=== PATIENT | male | born 1990 | race Caucasian/White ===

== ENCOUNTER 2017-02-23 20:39 | Emergency (ER) | payer MEDICAID ==
[~2017-02-23] VITALS: Ht 172.7 cm; Wt 112.0 kg
[~2017-02-23 20:39] MED LIST: ACYC800T57 PO; POLY15DR42 BOTH EYES; PRED50TA PO
[2017-02-23 20:42] VITALS: Ht 172.7 cm; Wt 112.0 kg
[2017-02-23] MEDS ORDERED: KETOROLAC 15 MG INJ IM STA (21:42)
--- NOTE | 2017-02-23 21:42 | ERD ---
ER Documentation Chief Complaint Chief Complaint low back pain x 2 days, denies injury HPI This 26-year-old male patient presents to emergency department for assessment of chronic lumbar back pain x 3 weeks worsening with conservative tx of IBU. pt reports pain is worse on left and is radiating into glut , pain described as " something is pushing against back . 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 Medications Home Meds Active Scripts Artificial Tears* (Artificial Tears* Ophth) 15 ml Opht, 2 DROP BOTH EYES Q3H Y for DRY EYES, #1 EA Prov:ROSELIA RICHMOND MISSILE TRACKING TECHNICIAN 11/08/15 Prednisone* (Prednisone*) 50 Mg Tablet, 50 MG PO DAILY, #5 TAB Prov:ROSELIA RICHMOND MISSILE TRACKING TECHNICIAN 11/08/15 Acyclovir* (Zovirax*) 800 Mg Tablet, 800 MG PO 5 TIMES DAILY for 7 Days, TAB Prov:ROSELIA RICHMOND MISSILE TRACKING TECHNICIAN 11/08/15 Reported Medications [none] Unknown Strength No Conflict Check 11/07/15 Allergies Allergies: Coded Allergies: No Known Allergy (Unverified , 01/13/14) PMhx/Soc History of Surgery: No Anesthesia Reaction: No Hx Neurological Disorder: No Hx Respiratory Disorders: No Hx Cardiac Disorders: No Hx Psychiatric Problems: No Hx Miscellaneous Medical Probl: No Hx Alcohol Use: Yes (socially ) Hx Substance Use: No Hx Tobacco Use: No Physical Exam Vitals Vital Signs Date Time Temp Pulse Resp B/P Pulse Ox O2 Delivery O2 Flow Rate FiO2 02/23/17 20:42 98.7 91 20 142/73 98 Vitals stable, triage notes reviewed Physical Exam Const: Nourished well-hydrated well-appearing 26-year-old male patient no acute distress Head: Eyes: ENT: . Neck: Resp: Cardio: Abd: Soft, non tender, non distended. Normal bowel sounds Skin: Back Exam: Skin: No bruising or rash Compartments: Soft Motor: Normal flexion and extension of bilateral hip/knee/ ankle/foot-straight leg rises positive at 55, pain bilaterally with adduction and abduction Sensation: Intact to light touch throughout Bones: No midline TTP Ext: No cyanosis, or edema Neur: Awake and alert Psych: Normal Mood and Affect Results 24 hrs Current Medications Medications (Trade) Dose Ordered Sig/Yara Route PRN Reason Start Time Stop Time Status Last Admin Dose Admin Ketorolac Tromethamine (Toradol) 15 mg ONCE STAT IM 02/23/17 21:42 02/23/17 21:43 DC 02/23/17 22:07 Diazepam (Valium) 5 mg ONCE ONCE PO 02/23/17 22:00 02/23/17 22:01 DC 02/23/17 22:07 Procedures/MDM This 26-year-old male patient presents to emergency department for low back pain worsening over the last 3 weeks treating with ibuprofen, 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 Patient reports that he now is experiencing pain greater on left side radiating to left buttocks. Emergency room course includes history and physical exam, straight leg rises positive with abduction and abduction, I do not feel it is necessary to have a lumbar spine x-ray, patient will be treated with Toradol and Valium in emergency department reassessed after 30 minutes with improvement of symptoms discharged home with Naprosyn 500 mg 1 tab p.o. twice daily 10 days , Pepcid 20 mg 1 tab p.o. twice daily 10 days, and Valium 5 mg 1 tab p.o. 3 times daily as needed myalgia. Follow-up with primary care physician within the next 7-10 days for possible referral to physical therapy, consider incident report at work. Patient is stable with no new complaints during ER course, clinically there is no current evidence to suggest cauda equina syndrome, spinal abscess, sepsis, acute abdomen, or any other emergent condition appearing to require further evaluation or hospitalization. I feel the patient is stable for discharge at this time. I have discussed results, examination findings, the treatment plan with the patient and family present prior to discharge. Indications for emergent reevaluation, side effects of medication were also discussed. All questions were answered. Patient verbalizes understanding and agrees with plan of care. Departure Diagnosis: Primary Impression: Back pain Back pain location: low back pain Chronicity: acute Back pain laterality: bilateral Sciatica presence: with sciatica Sciatica laterality: sciatica of left side Qualified Code: M54.42 - Acute bilateral low back pain with left- sided sciatica Condition: Good Patient Instructions: Back Pain W/ Sciatica Additional Instructions: Thank you for for coming to [facility] for your care today. Please ask your nurse or provider if you have questions about your care today and do not leave until all your questions have been answered. Please use any medications given as directed and follow-up with your doctor (or the doctor you were referred to) in the next 2-3 days. If you do not have a primary care doctor you may follow up at the [facility] (listed below). You may also use motrin and tylenol as needed for fever and/or pain unless instructed otherwise by your provider or nurse. Indications for more urgent follow-up have been discussed, but you may return to the Emergency Department at ANY time for any worrisome or worsening symptoms. If you have abdominal pain, please know that no test or exam you received is perfect and you should follow up within 8 hours for continued pain. If you had any imaging studies today, such as an X-Ray or CT Scan, these studies will be reviewed later by a radiologist. You will be called if there are important findings that were not identified today, so make sure the contact information you provided at registration is correct. If you received any narcotic pain control medicine today, such as Vicodin, Morphine or Dilaudid, your coordination and judgment may be affected for a number of hours. Please do not drive or operate heavy machinery, and you may want someone to assist you at home. If you were given a prescription for narcotic medication, be aware that it is very addictive- use sparingly and only if necessary. CRISTA BEY Feb 23, 2017 21:41
[2017-02-23] MEDS ORDERED: DIAZEPAM 5 MG TAB PO ONE (22:00)
[2017-02-23] MEDS ORDERED: NAPR-260 PO (23:17)
[2017-02-23] MEDS ORDERED: DIAZ-90 PO (23:17)
[2017-02-23] MEDS ORDERED: FAMO-96 PO (23:17)
== END 2017-02-23 23:25 | disposition home or self-care (01) ==
LOC: FTE 20:39
DX: M54.42 Lumbago with sciatica, left side (principal)
CPT/HCPCS: 96372; J1885; Z7502; Z7610

== ENCOUNTER 2018-11-26 23:06 | Emergency (ER) | payer SELFPAY ==
[~2018-11-26] VITALS: Ht 170.2 cm; Wt 108.7 kg
[~2018-11-26 23:06] MED LIST changes: +ACYC800T5 PO; -ACYC800T57 PO; +BEN25 PO; +DIAZ5TAB PO; +FAMO-96 PO; +IBUP800T48 PO; +NAPR-985 PO; +PRED20TA PO
[2018-11-26 23:15] VITALS: BP 150/84; PULSE 67; RESP 18; Ht 170.2 cm; Wt 108.7 kg
--- NOTE | 2018-11-27 00:25 | ERD ---
ER Documentation Chief Complaint Chief Complaint neck rash since yesterday. c/o itch HPI This is a 28-year-old male presents emergency department with complaints of rash to the neck that started yesterday. Complains of itchiness and pain to rash area. Denies headache, head injury, loss of consciousness, dizziness, neck pain, neck stiffness, throat pain, difficulty swallowing, difficulty breathing lying flat, shoulder pain, chest pain, back pain, abdominal pain, nausea, vomiting, constipation, diarrhea, urinary symptoms, loss of bowel and bladder control, trauma, injury, falls, difficulty walking due to pain, numbness or tingling sensation, calf pain, recent travel, recent major surgery in the last 3 weeks, calf pain, recent long travel, recent exposure to any illness, recent antibiotic use in the last 3 months, fever, chills, seizures. Past medical history: Denies. Surgical history: Denies. Social: Denies smoking, use of alcoholic beverages, use of illegal drugs. ROS All systems reviewed and are negative except as per history of present illness. Medications Home Meds Active Scripts Prednisone* (Prednisone*) 20 Mg Tab, 60 MG PO DAILY for 5 Days, TAB Prov:COURTNEY CORONA 11/27/18 Diphenhydramine Hcl* (Benadryl*) 25 Mg Cap, 25 MG PO Q6 PRN for ITCHING/RASH, #30 TAB Prov:COURTNEY CORONA 11/27/18 Ibuprofen* (Motrin*) 800 Mg Tab, 800 MG PO Q8 PRN for PAIN AND OR ELEVATED TEMP, #30 TAB Prov:COURTNEY CORONA 11/27/18 Acyclovir* (Zovirax*) 800 Mg Tablet, 800 MG PO 5 TIMES DAILY for 7 Days, TAB Prov:PASILACOURTNEY WAKEFIELD 11/27/18 Diazepam* (Valium*) 5 Mg Tablet, 5 MG PO Q8, #10 TAB Prov:MAIDA,CRISTA 02/23/17 Famotidine* (Pepcid*) 20 Mg Tablet, 20 MG PO BID for 10 Days, TAB Prov:MAIDA,CRISTA 02/23/17 Naproxen* (Naprosyn*) 500 Mg Tablet, 500 MG PO BID PRN for PAIN AND/OR INFLAMMATION, #20 TAB Prov:MAIDA,CRISTA 02/23/17 Artificial Tears* (Artificial Tears* Ophth) 15 ml Opht, 2 DROP BOTH EYES Q3H PRN for DRY EYES, #1 EA Prov:ROSELIA RICHMOND TONY Tariq INFORMATION CONSULTANT 11/08/15 Prednisone* (Prednisone*) 50 Mg Tablet, 50 MG PO DAILY, #5 TAB Prov:ROSELIA RICHMOND Marciano INFORMATION CONSULTANT 11/08/15 Acyclovir* (Zovirax*) 800 Mg Tablet, 800 MG PO 5 TIMES DAILY for 7 Days, TAB Prov:ROSELIA RICHMOND Marciano INFORMATION CONSULTANT 11/08/15 Reported Medications [none] Unknown Strength No Conflict Check 11/07/15 Allergies Allergies: Coded Allergies: No Known Allergy (Unverified , 11/26/18) PMhx/Soc History of Surgery: No Anesthesia Reaction: No Hx Neurological Disorder: No Hx Respiratory Disorders: No Hx Cardiac Disorders: No Hx Psychiatric Problems: No Hx Miscellaneous Medical Probl: No Hx Alcohol Use: No Hx Substance Use: No Hx Tobacco Use: No Physical Exam Vitals Physical Exam Const: No acute distress Head: Atraumatic Eyes: Normal Conjunctiva. No conjunctival injection. ENT: Normal External Ears, Nose and Mouth. Bilateral ear: TM is not erythematous. No bleeding. No discharge. No hearing loss. No mastoid tenderness. Nose: No nasal flaring. No signs of obstruction. Throat/Lips: No lip swelling. No tongue swelling. Able to control tongue movement. No drooling. Uvula is in midline and non-displaced. Tonsils are + 1 with no redness and no exudates. Tolerating secretions. Patent airway. Speaks full and clear sentences. No tripoding. Neck: Full range of motion. No meningismus. Nuchal rigidity. No signs of meningeal irritation. Resp: Clear to auscultation bilaterally. No retraction noted. No accessory muscle use in breathing. Cardio: Regular rate and rhythm, no murmurs. Abd: Soft, non tender, non distended. Normal bowel sounds. No abdominal tenderness. Skin: No petechiae. Noted vesicular lesions to neck. No hives. Back: No midline or flank tenderness Ext: No cyanosis, or edema Neur: Awake and alert. No neurological deficit.. Psych: Normal Mood and Affect Results 24 hrs Current Medications Medications Dose Sig/Ayra Start Time Status Last (Trade) Ordered Route PRN Stop Time Admin Dose Reason Admin Acyclovir 800 mg ONCE ONCE 11/27/18 DC 11/27/18 (Zovirax) PO 00:30 11/27/18 01:11 00:31 Ibuprofen 800 mg ONCE ONCE 11/27/18 DC 11/27/18 (Motrin) PO 00:30 11/27/18 01:06 00:31 25 mg ONCE ONCE 11/27/18 DC 11/27/18 Diphenhydrami PO 00:30 11/27/18 01:06 ne HCl 00:31 (Benadryl) Procedures/MDM Diagnostic tests: Genital exam. Treatment: Motrin. Acyclovir. Re-evaluation: No signs of airway obstruction. Speaks full and clear sentences. No signs of angioedema. Stated that she feels much better at this time. Stated that she is comfortable to go home. Differential diagnosis I have low suspicion for angioedema, airway obstruction, Dolan-Doug syndrome, scabies, sepsis, deep space infection. Final diagnosis: Shingles. Prescription: Acyclovir. Motrin. Prednisone. Benadryl. Follow-up with PCP in the next 24-48 hours. PCP to refer patient to profile saw operator in the next 24 to 48 hours. Come back here in the emergency depar tment for any new symptoms or any worsening symptoms. All questions and concerns were answered. Patient and family members verbalized understanding and agreed with plan of care. Hemodynamically stable on discharge. Departure Diagnosis: Primary Impression: Rash Additional Impression: Shingles Condition: Stable Additional Instructions: Follow-up with PCP in the next 24-48 hours. PCP to refer patient to profile saw operator in the next 24 to 48 hours. Come back here in the emergency department for any new symptoms or any worsening symptoms. COURTNEY CORONA Nov 27, 2018 00:25
[2018-11-27] MEDS ORDERED: ACYCLOVIR 800 MG TAB PO ONE (00:30)
[2018-11-27] MEDS ORDERED: DIPHENHYDRAMINE 25 MG CAP PO ONE (00:30)
[2018-11-27] MEDS ORDERED: IBUPROFEN 800 MG TAB PO ONE (00:30)
== END 2018-11-27 01:15 | disposition home or self-care (01) ==
LOC: FTE 23:06
DX: B02.9 Zoster without complications (principal)
CPT/HCPCS: 99283